=== PATIENT | female | born 2000 | race Caucasian/White ===

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

== ENCOUNTER → 2019-01-15 14:34 | Outpatient (CLI) | payer BC, SELFPAY ==
[2019-01-07 10:50] VITALS: BMI 19.3
--- NOTE | 2019-01-15 14:37 | US_ITS ---
STUDY: ULTRASOUND OF THE FEMALE PELVIS - COMPLETE REASON FOR EXAM: Female, 18 years old. Dysmenorrhea. LMP: 12/26/2018 TECHNIQUE: Transabdominal TECHNICAL QUALITY: Adequate. COMPARISON: None. FINDINGS: The uterus is anteverted and is in a midline position. The uterus measures 6.5 x 3.5 x 2.6 cm. Normal uterine cervix. The endometrium measures 2.9 mm in thickness, and is hyperechoic. There is no demonstrated endometrial mass. There is no demonstrated myometrial mass. I.U.D. - The patient does not have an I.U.D. The right ovary is visualized. The right ovary measures 3.2 x 1.9 x 1.5 cm. There is no right ovarian cyst or ovarian mass. There is no visualized right adnexal mass or complex lesion. There is normal arterial and normal venous vascularity. The left ovary is visualized. The left ovary measures 2.2 x 4.3 x 1.6 cm. There is no left ovarian cyst or ovarian mass. There is no visualized left adnexal mass or complex lesion. There is normal arterial and normal venous vascularity. There is minimal fluid in the cul-de-sac. Normal bladder contour. US/Pelvic (Non ) IMPRESSION: No definite abnormality. Electronically Signed: Juan Carlos Alfonso MD at 21:56 EDT , Service support ,
== END ==
PROVIDERS: Family Provider Pediatrics; PCP Pediatrics; Referring Provider Obstetrics & Gynecology; Visit Provider Obstetrics & Gynecology
DX: N94.6 Dysmenorrhea, unspecified (principal)
CPT/HCPCS: 76856; 93976

== ENCOUNTER 2020-05-04 11:33 | Day surgery (SDC) | payer BC, SELFPAY ==
[2020-03-24 08:43] VITALS: BMI 19.3
[2020-04-23 14:18] VITALS: BMI 19.3
[2020-05-04] VITALS (10 sets, daily range): BP systolic 97–138; BP diastolic 51–88; PULSE 57–91; RESP 14–16; TEMP 36.3–37.3; O2SAT 96–100; BMI 20.5
[2020-05-04 12:16] LABS: Hematocrit 47.3 % (37-47); Hemoglobin 15.7 g/dL (12.0-15.0); Mean Corp Hgb Conc 33.2 g/dL (32-36); Mean Corpuscular Hgb 31.3 pg (27.0-32.0); Mean Corpuscular Volume 94.2 fL (81-99); Mean Platelet Vol. 9.3 fl (6.2-12.0); Platelet Count 249 K/mm3 (150-450); RBC Distribution Width CV 11.9 % (11.6-14.6); RBC Distribution Width SD 41.5 fl (35.1-43.9); Red Blood Count 5.02 M/mm3 (4.2-5.4)
[2020-05-04] MEDS: Lactated Ringers 1,000 ML 75 ML IV (12:20)
[2020-05-04 12:29] LABS: Internal QC Validated? YES +Cl - CLEAR BKGD; Pregnancy, Serum, hCG Quali. NEGATIVE Negative
[2020-05-04] MEDS: Bupivacaine 0.25% 30 ML Vial (13:50)
[2020-05-04] MEDS: Silver Nitrate (BKC) 1 EACH ×2 (13:50)
--- NOTE | 2020-05-04 14:19 | PCM.HPOB.BLA ---
- Problem List (1) Dysmenorrhea Status: Acute Comment: failed seasonale due to bleeding, norgestimate- mood side effects, order ultrasound and try apri (2) Intact hymenal ring Status: Chronic Comment: plan partial hymenetcomy under anesthesia. pap smear to be done. History and Physical Date of Admission: 05/04/20 Intake Vital Signs 04/23/20 BMI 19.3 04/23/20 Height 5 ft 3 in 04/23/20 Weight: 114 lb 04/23/20 BMI 20.2 04/23/20 BP 110/82 H Intake Visit Reasons: preop partial hymenectomy Chief Complaint: pre op partial hymenectomy [employer] Courtesy Clerk Required: No Is patient in pain?: No Allergies amoxicillin Allergy (Mild, Verified 04/23/20 14:17) Other Medications desog-e.estradiol/e.estradiol 0.15 mg-0.02 mg(21)/e.estrad 0.01 mg(5) tablet 1 tab PO QDAY #84 tab 03/24/20 [Rx Confirmed 04/23/20] escitalopram oxalate 10 mg tablet 10 mg PO DAILY 03/24/20 [History Confirmed 04/23/20] Is last menstrual period known: No Post menopausal: No Patient : No : No PFSH Surgical History History of adenoidectomy (Acute) S/P adenoidectomy (Inactive) Family History Mother Myocardial infarction Father Myocardial infarction Other Heart disease Social History (Updated 04/23/20 @ 14:[address] Jaimee Jensen MD) Smoking Status: Never smoker alcohol intake: never substance use type: does not use caffeine: Yes what type of physical activity do you participate in: walking seatbelt use: always do you feel safe at home: Yes additional social history: [place]- Education major HPI preop partial hymenectomy: Details: JOCELYNE FLORES is a 19 year old who presents for discussion of partial hymenectomy. Female Reproductive History Questions: Sexually active: No Pregancy History 0 Elective abortions Hx Para Spontaneous abortions Hx # Term Pregnancies Ectopic pregnancies Hx # Pregnancies Multiple births # of living children ROS Const Constitutional: Denies fatigue, weight gain or weight loss Cardio Card: Denies chest pain Resp Resp: Denies cough or shortness of breath with activity GI GI: Denies abdominal pain, bloating, change in stools, constipation or vomiting : Reports as per HPI; denies difficulty urinating, pelvic pain, urinary frequency, urinary incontinence, urinary urgency, vaginal discharge or vaginal itching Exam Const General: cooperative, healthy appearing, no acute distress, well developed Orientation: alert, oriented to person, oriented to place HENIL Head: normal to inspection Neck Neck: normal visual inspection Thyroid: thyroid normal Lymphatic: no lymphadenopathy noted Chest Breast inspection: normal inspection of the breasts, normal inspection of the axillae Breast palpation: normal palpation of the breasts, normal palpation of the axillae, no axillary lymphadenopathy Resp Effort & Inspection: normal respiratory effort GI Palpation: soft, no masses, nontender Rectal Exam: deferred External Female Exam: normal external appearance, normal appearance of the urethra Urethra: normal appearance of the urethra Speculum Exam - Vagina: other (Intact hymen, unable to tolerate 1 finger exam) Speculum Exam - Cervix: normal appearance of the cervix Other: Dr. Jensen repeated exam and concurs Neuro General: alert, oriented x3 Psych Affect: normal affect Assessment & Plan Problems 1. Dysmenorrhea N94.6 failed seasonale due to bleeding, norgestimate- mood side effects, order ultrasound and try apri 2. Intact hymenal ring N89.6 plan partial hymenetcomy under anesthesia. pap smear to be done. After discussing the patient's diagnosis and treatment plan options, patient wishes to proceed with surgical management. I have discussed with the patient the risks, benefits, and alternatives of the procedure which include but are not limited to risks of anesthesia, bleeding, infection, possible damage to bowel, bladder, or surrounding vasculature which could lead to additional surgery to evaluate any complications. Patient agrees to procedure and wishes to proceed. ACOG/uptodate references given for additional information regarding procedure. Coding Level of Care Code No Charge Diagnoses Dysmenorrhea N94.6 Intact hymenal ring N89.6 UPDATE- I have seen the patient and performed any clinically relevant updates to the history and physical exam. Jaimee Jensen MD
--- NOTE | 2020-05-04 14:20 | PCM.OPRPT ---
Problem List (1) Dysmenorrhea Status: Acute Comment: failed seasonale due to bleeding, norgestimate- mood side effects, order ultrasound and try apri (2) Intact hymenal ring Status: Chronic Comment: plan partial hymenetcomy under anesthesia. pap smear to be done. Report of Operation Date of Procedure: 05/04/20 Pre-Operative Diagnosis: intact hymen Post-Operative Diagnosis: same Surgery/Procedure Performed:: partial hymenectomy and pap Description of Surgical Findings:: intact hymen slaughterer religious ritual: Inessa Olson Type of Anesthesia:: Local MAC Special Medications: silver nitrate Specimen's removed: pap Drains: none Estimated Blood Loss (mL): 10 Fluids Replaced: crystalloid Description of Procedure: Was placed under MAC anesthesia was prepped and draped in the normal sterile fashion the dorsolithotomy position. The hymen was visualized and noted be intact circumferentially and injected with quarter percent Marcaine and a cruciate incision was made at 2 11 4 and 8:00 and interrupted sutures were placed over those areas to obtain hemostasis. 3-0 Vicryl repeat was used. Silver nitrate was used over the area to also obtain hemostasis. Silvadene cream placed over the area at the end patient was awoken and taken recovery in stable condition Grafts/Implants Used: none - Complications none Multi Select Codes - Urinary/Genital Urinary/Genital CPT Codes: Other Procedure See Report - [id number] hymenectomy
--- NOTE | 2020-05-04 14:27 | DCINST_ITS ---
Discharge Diet: No Restrictions Discharge Activity: Return to Normal Activity, May Shower, May Take a Tub Bath Allergies/Adverse Reactions: Allergies amoxicillin Allergy (Mild, Verified 04/26/20 14:23) Other Medications to take at Discharge desog-e.estradiol/e.estradiol 0.15 mg-0.02 mg(21)/e.estrad 0.01 mg(5) tablet 1 tab PO QDAY #84 tab 03/24/20 escitalopram oxalate 10 mg tablet 10 mg PO DAILY 03/24/20 Naproxen [Naprosyn] 250 - 500 mg PO Q8H PRN PRN #30 tab 05/04/20 Oxycodone HCl/Acetaminophen [Percocet 5-325] 1 - 2 tablet PO Q6H PRN PRN 7 Days #10 tablet 05/04/20 The following prescriptions were given: Naproxen [Naprosyn] 250 - 500 mg PO Q8H PRN PRN #30 tab PRN Reason: MILD PAIN Transmission Status: Pending to [facility] Oxycodone HCl/Acetaminophen [Percocet 5-325] 1 - 2 tablet PO Q6H PRN PRN 7 Days #10 tablet PRN Reason: Pain Transmission Status: Sent to [facility] Orders to be completed after discharge: ,Urine Time Frame: 04/26/20, Facility: [facility]: Laboratory Primary Care Physician: Pascual Griffiths MD [Primary Care Provider] - Test Results: Test results from this visit will be discussed in further detail at your follow- up appointment, if applicable. Please Follow Up With: Jaimee Jensen MD - [phone]
[2020-05-10 09:45] LABS: HPV Reflexed? NOT INDICATED
== END 2020-05-04 14:00 | disposition home or self-care (01) ==
LOC: SDC 11:35 → AC 11:36
PROVIDERS: Anesthesiology; PCP Family Medicine; Referring Provider Obstetrics & Gynecology; Visit Provider Obstetrics & Gynecology
PROC: (CPT 56700; principal; 2020-05-04 13:20)
DX: N89.6 Tight hymenal ring (principal); N94.6 Dysmenorrhea, unspecified; Z11.59 Encounter for screening for other viral diseases; F32.9 Major depressive disorder, single episode, unspecified; F41.9 Anxiety disorder, unspecified; Z79.899 Other long term (current) drug therapy
CPT/HCPCS: 00940; 56700; 36415; 84703; 85027; 86850; 86900; 86901; 87635; 88175; J7120; G0145; U0003

== ENCOUNTER → 2020-06-03 16:40 | Outpatient (CLI) | payer BC, SELFPAY ==
[2020-06-03 13:13] VITALS: BMI 20.9
== END ==
PROVIDERS: PCP Family Medicine; Visit Provider Obstetrics & Gynecology
DX: R30.0 Dysuria (principal)
CPT/HCPCS: 87086; 87088

== ENCOUNTER → 2020-06-04 | Outpatient (CLI) | payer BC, SELFPAY ==
[2020-06-04 14:17] VITALS: BMI 20.9
== END | disposition home or self-care (01) ==
PROVIDERS: PCP Family Medicine; Referring Provider Obstetrics & Gynecology; Visit Provider Obstetrics & Gynecology
DX: N89.8 Other specified noninflammatory disorders of vagina (principal)
CPT/HCPCS: 87070; 87205

== ENCOUNTER → 2021-02-02 16:33 | Outpatient (CLI) | payer BC, SELFPAY ==
[2021-02-02 15:07] VITALS: BMI 21.2
[2021-02-07 04:06] LABS: Chlamydia By Nucleic Acid AMP Negative (Negative)
[2021-02-07 07:59] LABS: Gonococcus By Nucleic Acid AMP Negative (Negative)
== END ==
PROVIDERS: PCP Family Medicine; Referring Provider Nurse Practitioner Women's Health; Visit Provider Nurse Practitioner Women's Health
DX: Z11.3 Encounter for screening for infections with a predominantly sexual mode of transmission (principal)
CPT/HCPCS: 87491; 87591

== ENCOUNTER → 2021-03-16 | Outpatient (CLI) | payer BC, SELFPAY ==
[2021-03-16 13:53] VITALS: BMI 21.2
[2021-04-05 20:34] LABS: HPV Reflexed? NOT INDICATED
== END | disposition home or self-care (01) ==
LOC: LABSPEC 14:34
PROVIDERS: PCP Family Medicine; Referring Provider Nurse Practitioner Women's Health; Visit Provider Nurse Practitioner Women's Health
DX: Z12.4 Encounter for screening for malignant neoplasm of cervix (principal); R87.615 Unsatisfactory cytologic smear of cervix
CPT/HCPCS: 88175; G0145